=== PATIENT | female | born 1960 | race Caucasian/White ===

== ENCOUNTER 2019-03-12 22:24 | Emergency (ER) | payer OTHER ==
[~2019-03-12] VITALS: Ht 154.9 cm; Wt 52.2 kg
[2019-03-12 22:41] LABS: URINE BILIRUBIN 2+ (Negative); URINE BLOOD 3+ (Negative); URINE CLARITY TURBID; URINE COLOR YELLOW; URINE GLUCOSE-RANDOM TRACE (Negative); URINE KETONES TRACE (Negative); URINE LEUKOCYTES-REFLEX 3+ (Negative); URINE NITRITE-REFLEX NEGATIVE (Negative); URINE PROTEIN 3+ (Negative)
[2019-03-12 22:43] LABS: ICTOTEST (BILI CONFIRMATORY) Positive (Negative)
[2019-03-12] MEDS ORDERED: BACTRIM DS TAB1 EACH PO (23:18)
[2019-03-12 23:21] LABS: BACTERIA-REFLEX >30 Many /HPF (None Seen); CASTS None Seen /LPF (None Seen); SQUAMOUS 0-3 Few /LPF (0-3); URINE RBC >20 Many /HPF (0-2); URINE WBC-REFLEX >25 Many /HPF (0-5)
[2019-03-12 23:22] LABS: CRYSTALS None Seen /LPF (None Seen)
[2019-03-12 23:54] VITALS: BP 139/78
== END 2019-03-12 23:57 | disposition home or self-care (01) ==
LOC: M.ERS 22:24
PROVIDERS: Emergency Medicine
DX: N39.0 Urinary tract infection, site not specified (principal)